=== PATIENT | female | born 2000 | race Caucasian/White ===

== ENCOUNTER → 2020-10-08 | Day surgery (SDC) | payer OTHER ==
[~2020-10-08] MED LIST: ADVAIR 100-501 EACH INH; CITALOPRAM HBR40 MG PO; SINGULAIR10 MG PO
[2020-10-08 11:41] LABS: HCG (URINE) SCREEN NEGATIVE (NEGATIVE)
[2020-10-08 11:50] LABS: HCT 39.9 % (37.0-47.0); HGB 13.9 g/dl (12.5-16.0); LYMPHOCYTE 28.3 % (15-48); MCH 31.2 pg (25.0-31.0); MCHC 34.8 g/dL (32.0-36.0); MCV 89.5 fL (78.0-100.0); MONOCYTE 6.6 % (0-12); MPV 10.5 fL (6.0-9.5); NRBC 0; PLT 271 K/uL (150-400); RBC 4.46 M/uL (4.20-5.40); RDW 12.3 % (11.5-14.0)
== END | disposition home or self-care (01) ==
LOC: FAS 10:52
PROVIDERS: Oral & Maxillofacial Surgery
DX: K02.63 Dental caries on smooth surface penetrating into pulp (principal); K05.30 Chronic periodontitis, unspecified; J45.909 Unspecified asthma, uncomplicated; F41.9 Anxiety disorder, unspecified; Z20.822 Contact with and (suspected) exposure to COVID-19; Z91.010 Allergy to peanuts
CPT/HCPCS: 36415; 84703; 85025; J1100; J1885; J2250; J2405; J2704; J3010; J7120